=== PATIENT | female | born 1950 | race Caucasian/White ===

== ENCOUNTER → 2018-09-20 | Outpatient (CLI) | payer OTHER, MEDICAID | LOC: FIMAGING 07:06 | PROVIDERS: ATTEND Family Medicine | DX: R22.1 Localized swelling, mass and lump, neck (principal) ==

== ENCOUNTER → 2018-10-15 | Outpatient (CLI) | payer OTHER, MEDICAID | LOC: FIMAGING 10:34 | PROVIDERS: ATTEND Surgery | DX: Z12.31 Encounter for screening mammogram for malignant neoplasm of breast (principal) ==

== ENCOUNTER → 2018-10-19 | Outpatient (CLI) | payer OTHER, MEDICAID | LOC: BMCIMAGING 10:53 ==